=== PATIENT | male | born 1990 | race Caucasian/White ===

== ENCOUNTER 2023-05-21 22:18 | Inpatient (IN) | payer OTHER ==
[2023-05-22] MEDS ORDERED: diazePAM CARPU-JECT 10 MG/2 ML DISP.SYRIN IVPUSH ONE ×2 (00:07→04:14)
[2023-05-22] MEDS ORDERED: diazePAM CARPU-JECT 10 MG/2 ML DISP.SYRIN ONE ×2 (00:16→04:18)
[2023-05-22 01:23] LABS: BASO % 0.2 % (0-2.0); HEMATOCRIT 44.8 % (35.4-49); HEMOGLOBIN 15.1 GM/dL (11.7-16.9); LYMPH % 11.9 % (8-40); MCH 28.2 pg (25.7-33.7); MCHC 33.7 g/dl (32.0-35.9); MEAN CELL VOLUME 83.7 fl (80-96); MONO % 5.2 % (3.8-10.2); NEUT % 82.7 % (42.8-82.8); PLATELET COUNT 205 10^3/uL (134-434); RBC 5.35 M/mm3 (4.00-5.60); WHITE BLOOD COUNT 9.2 K/mm3 (4.0-10.0)
[2023-05-22 01:44] LABS: POTASSIUM 4.2 mmol/L (3.5-5.1)
[2023-05-22 01:46] LABS: CALCIUM 9.7 mg/dL (8.5-10.1)
[2023-05-22 01:47] LABS: ALBUMIN 4.2 g/dl (3.4-5.0); BLOOD UREA NITROGEN 12.3 mg/dL (7-18)
[2023-05-22 01:51] LABS: TOT PROT 7.9 g/dl (6.4-8.2)
[2023-05-22 01:52] LABS: BILIRUBIN,TOTAL 0.4 mg/dL (0.2-1)
[2023-05-22] MEDS ORDERED: chlordiazePOXIDE HCL 25 MG CAPSULE PO PRN (10:33)
[2023-05-22] MEDS ORDERED: FOLIC ACID INJECTION - 1 MG, THIAMINE HCL 100 MG, MULTIVIT INJECTION ADULT 10 ML in SOD... IVPB ONE (11:00)
[2023-05-22] MEDS ORDERED: chlordiazePOXIDE HCL 25 MG CAPSULE ONE ×3 (11:02→23:01)
[2023-05-22] MEDS: chlordiazePOXIDE HCL 25 MG CAPSULE PO SCH ×3 (11:05→23:03)
[2023-05-23 00:45] VITALS: BMI 14.2
[2023-05-23] MEDS: chlordiazePOXIDE HCL 25 MG CAPSULE PO SCH ×4 (05:33→22:34)
[2023-05-23 07:47] LABS: BASO % 0.4 % (0-2.0); HEMATOCRIT 45.5 % (35.4-49); LYMPH % 34.8 % (8-40); MCH 28.4 pg (25.7-33.7); MCHC 32.9 g/dl (32.0-35.9); MEAN CELL VOLUME 86.2 fl (80-96); MEAN PLT VOLUME 9.4 fl (7.5-11.1); NEUT % 52.8 % (42.8-82.8); PLATELET COUNT 208 10^3/uL (134-434); RBC 5.27 M/mm3 (4.00-5.60); RDW 14.4 % (11.9-15.9); WHITE BLOOD COUNT 7.4 K/mm3 (4.0-10.0)
[2023-05-23 07:55] LABS: POTASSIUM 3.9 mmol/L (3.5-5.1)
[2023-05-23 08:05] LABS: BLOOD UREA NITROGEN 18.6 mg/dL (7-18)
[2023-05-23 08:07] LABS: CREATININE 0.9 mg/dL (0.55-1.3); PHOSPHOROUS 4.1 mg/dL (2.5-4.9)
[2023-05-23 08:09] LABS: ALBUMIN 3.5 g/dl (3.4-5.0); BILIRUBIN,TOTAL 0.4 mg/dL (0.2-1); TOT PROT 6.9 g/dl (6.4-8.2)
[2023-05-23] MEDS ORDERED: PNEUMOC 20-VAL CONJ-DIP CRM/PF 0.5 ML SYRINGE IM ONE (10:00)
[2023-05-23 13:02] LABS: METHADONE, UR NEGATIVE (NEGATIVE); OPIATES, URI NEGATIVE (NEGATIVE); URINE BARBITURATES NEGATIVE (NEGATIVE)
[2023-05-23 13:04] LABS: PHENCYCLIDINE,URINE NEGATIVE (NEGATIVE)
[2023-05-23 13:06] LABS: URINE AMPHETAMINES NEGATIVE (NEGATIVE)
[2023-05-23 13:21] LABS: COCAINE, UR NEGATIVE (NEGATIVE); URINE BENZODIAZEPINES POSITIVE (NEGATIVE)
[2023-05-23] MEDS ORDERED: chlordiazePOXIDE HCL 25 MG CAPSULE PO PRN (17:47)
[2023-05-24] MEDS ORDERED: ACETAMINOPHEN 325 MG TABLET (FP) PO ONE (05:10)
[2023-05-24] MEDS: chlordiazePOXIDE HCL 25 MG CAPSULE PO SCH ×4 (05:30→22:31)
[2023-05-24] MEDS ORDERED: chlordiazePOXIDE HCL 25 MG CAPSULE PO PRN (09:16)
[2023-05-24 09:32] LABS: HEMATOCRIT 44.6 % (35.4-49); HEMOGLOBIN 15.3 GM/dL (11.7-16.9); MCH 28.8 pg (25.7-33.7); MCHC 34.4 g/dl (32.0-35.9); MEAN CELL VOLUME 83.8 fl (80-96); MEAN PLT VOLUME 8.9 fl (7.5-11.1); PLATELET COUNT 204 10^3/uL (134-434); RBC 5.32 M/mm3 (4.00-5.60); RDW 13.9 % (11.9-15.9); WHITE BLOOD COUNT 10.5 K/mm3 (4.0-10.0)
[2023-05-24 09:49] LABS: POTASSIUM 3.9 mmol/L (3.5-5.1)
[2023-05-24 09:51] LABS: ALBUMIN 3.7 g/dl (3.4-5.0); BLOOD UREA NITROGEN 15.9 mg/dL (7-18); CALCIUM 9.3 mg/dL (8.5-10.1)
[2023-05-24 09:53] LABS: CREATININE 1.1 mg/dL (0.55-1.3); PHOSPHOROUS 3.5 mg/dL (2.5-4.9)
[2023-05-24 09:55] LABS: BILIRUBIN,TOTAL 0.6 mg/dL (0.2-1); TOT PROT 7.2 g/dl (6.4-8.2)
[2023-05-24] MEDS ORDERED: LORazepam 1 MG TABLET PO PRN ×2 (10:04→10:07)
[2023-05-24] MEDS: amLODIPine BESYLATE 2.5 MG TABLET (FP) PO SCH (10:14)
[2023-05-24] MEDS ORDERED: LORazepam 2 MG/ML SDV VIAL IVPUSH SCH (10:45)
[2023-05-24] MEDS ORDERED: LORazepam 2 MG/ML SDV VIAL IVPUSH PRN (10:57)
[2023-05-24] MEDS ORDERED: LORazepam 2 MG/ML SDV VIAL IVPUSH ONE (20:06)
[2023-05-25] MEDS ORDERED: chlordiazePOXIDE HCL 10 MG CAPSULE PO PRN
[2023-05-25] MEDS: chlordiazePOXIDE HCL 10 MG CAPSULE PO SCH ×4 (05:19→23:37)
[2023-05-25 07:14] LABS: HEMATOCRIT 46.3 % (35.4-49); MCH 29.1 pg (25.7-33.7); MCHC 34.6 g/dl (32.0-35.9); MEAN CELL VOLUME 84.2 fl (80-96); MEAN PLT VOLUME 8.6 fl (7.5-11.1); PLATELET COUNT 217 10^3/uL (134-434); RDW 14.3 % (11.9-15.9); WHITE BLOOD COUNT 10.8 K/mm3 (4.0-10.0)
[2023-05-25 09:22] LABS: POTASSIUM 3.8 mmol/L (3.5-5.1)
[2023-05-25 09:24] LABS: CALCIUM 9.3 mg/dL (8.5-10.1)
[2023-05-25 09:25] LABS: ALBUMIN 3.9 g/dl (3.4-5.0); BLOOD UREA NITROGEN 14.9 mg/dL (7-18); MAGNESIUM 2.2 mg/dL (1.8-2.4)
[2023-05-25 09:28] LABS: CREATININE 1.1 mg/dL (0.55-1.3)
[2023-05-25 09:29] LABS: BILIRUBIN,TOTAL 0.5 mg/dL (0.2-1); TOT PROT 7.7 g/dl (6.4-8.2)
[2023-05-25 09:31] LABS: PHOSPHOROUS 3.3 mg/dL (2.5-4.9)
[2023-05-25] MEDS: amLODIPine BESYLATE 2.5 MG TABLET (FP) PO SCH (09:48)
[2023-05-25] MEDS ORDERED: amLODIPine BESYLATE 2.5 MG TABLET (FP) PO ONE (13:30)
[2023-05-25] MEDS ORDERED: amLODIPine BESYLATE 5 MG TABLET (FP) PO ONE (13:30)
[2023-05-26] MEDS ORDERED: chlordiazePOXIDE HCL 10 MG CAPSULE PO SCH (05:00)
[2023-05-26 09:35] LABS: HEMATOCRIT 44.2 % (35.4-49); HEMOGLOBIN 15.2 GM/dL (11.7-16.9); MCH 28.8 pg (25.7-33.7); MCHC 34.5 g/dl (32.0-35.9); MEAN CELL VOLUME 83.4 fl (80-96); MEAN PLT VOLUME 8.9 fl (7.5-11.1); PLATELET COUNT 216 10^3/uL (134-434); RDW 14.2 % (11.9-15.9)
[2023-05-26] MEDS ORDERED: amLODIPine BESYLATE 5 MG TABLET (FP) PO SCH (10:00)
[2023-05-26] MEDS ORDERED: THIAMINE HCL 200 MG/2 ML VIAL IVPB SCH (10:00)
[2023-05-26 10:09] LABS: POTASSIUM 4.1 mmol/L (3.5-5.1)
[2023-05-26 10:19] LABS: ALBUMIN 3.8 g/dl (3.4-5.0); BLOOD UREA NITROGEN 12.7 mg/dL (7-18)
[2023-05-26 10:20] LABS: MAGNESIUM 2.2 mg/dL (1.8-2.4)
[2023-05-26 10:22] LABS: CREATININE 0.9 mg/dL (0.55-1.3); PHOSPHOROUS 3.1 mg/dL (2.5-4.9)
[2023-05-26 10:23] LABS: BILIRUBIN,TOTAL 0.4 mg/dL (0.2-1); CALCIUM 9.4 mg/dL (8.5-10.1); TOT PROT 7.6 g/dl (6.4-8.2)
[2023-05-26 15:11] VITALS: BP 137/99; PULSE 96; RESP 19; TEMP 98.6
[2023-05-27] MEDS ORDERED: chlordiazePOXIDE HCL 10 MG CAPSULE PO ONE (05:00)
== END 2023-05-26 18:49 | disposition home or self-care (01) | DRG 775 ==
LOC: JER 22:18 → JERBED 05-22 08:42 → J4W 05-23 00:22 → OBSVTOIN 05-24 09:51
PROVIDERS: ADMIT Internal Medicine; ATTEND Internal Medicine
DX: F10.239 Alcohol dependence with withdrawal, unspecified (principal); F10.229 Alcohol dependence with intoxication, unspecified; Y92.89 Other specified places as the place of occurrence of the external cause; I10 Essential (primary) hypertension; D72.829 Elevated white blood cell count, unspecified; F12.90 Cannabis use, unspecified, uncomplicated; G47.00 Insomnia, unspecified; R45.1 Restlessness and agitation; T44.3X1A Poisoning by other parasympatholytics [anticholinergics and antimuscarinics] and spasmolytics, accidental (unintentional), initial encounter; E66.9 Obesity, unspecified; Z68.32 Body mass index [BMI] 32.0-32.9, adult
CPT/HCPCS: 36415; 71045-TC-FY; 80053; 80307; 82550; 83735; 84100; 84443; 85025; 85027; 87040; 87086; 90677; 93005; 93010; 97116-GP; 97161-GP; 99285-25; G0378